=== PATIENT | male | born 1965 | race Caucasian/White ===

== ENCOUNTER 2024-11-13 09:33 | Day surgery (SDC) | payer BC ==
[2024-11-13] MEDS: Lactated Ringers 1,000 ML IV SCH (09:52)
[2024-11-13] MEDS ORDERED: fentaNYL 100 MCG/2 ML SDV ONE (10:24)
[2024-11-13] MEDS ORDERED: Propofol 200 MG/20 ML SDV ONE ×2 (10:24→11:26)
== END 2024-11-13 12:45 | disposition home or self-care (01) ==
LOC: VM.SDS 09:33
PROVIDERS: ATTEND Student in an Organized Health Care Education/Training Program
DX: Z12.11 Encounter for screening for malignant neoplasm of colon (principal); D12.8 Benign neoplasm of rectum; I10 Essential (primary) hypertension; E66.9 Obesity, unspecified; Z68.36 Body mass index [BMI] 36.0-36.9, adult
CPT/HCPCS: 00811; J2704; J3010; J7120